=== PATIENT | female | born 1975 | race Caucasian/White ===

== ENCOUNTER → 2018-04-19 10:16 | Outpatient (CLI) | payer OTHER, SELFPAY ==
[2018-04-19 10:39] LABS: Add Manual Diff / Slide Review NO; Basophils Percent Auto 0.5 % (0-2); Eosinophils Percent Auto 5.2 % (2-4); Hematocrit 39.2 % (36-46); Hemoglobin 13.6 g/dL (12.0-16.0); Lymphocytes Percent Auto 25.8 % (25-40); Mean Corpuscular HGB Conc 34.7 % (30-36); Mean Corpuscular Hemoglobin 31.2 PG (26-34); Monocytes Percent Auto 8.7 % (3-14); Neutrophils Absolute Auto 3600 /uL (3000-5900); Neutrophils Percent Auto 59.8 % (50-75); Platelet Count 263 X10^3/uL (150-400); Red Blood Cell Count 4.36 X10^6/uL (4.0-5.2); Red Cell Distribution Width 13.1 % (11.6-14.8); White Blood Cell Count 5.9 X10^3/uL (4.5-11.0)
[2018-04-19 11:04] LABS: Erythrocyte Sedimentation Rate 9 MM/HR (0-20)
[2018-04-19 11:35] LABS: Uric Acid 2.8 mg/dL (2.5-6.2)
== END ==
PROVIDERS: PCP Physician Assistant; Visit Provider Physician Assistant
DX: M19.079 Primary osteoarthritis, unspecified ankle and foot (principal)
CPT/HCPCS: 36415; 84550; 85025; 85651

== ENCOUNTER → 2018-07-18 12:53 | Outpatient (CLI) | payer OTHER, SELFPAY ==
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
== END ==
PROVIDERS: PCP Physician Assistant; Visit Provider Physician Assistant
DX: S90.31XA Contusion of right foot, initial encounter (principal); W10.9XXA Fall (on) (from) unspecified stairs and steps, initial encounter
CPT/HCPCS: 73630

== ENCOUNTER → 2019-03-04 09:31 | Outpatient (CLI) | payer OTHER, SELFPAY ==
[2019-03-04 10:27] LABS: Cholesterol 227 mg/dL (140-199); HDL Cholesterol 96 mg/dL (40-60); LDL Cholesterol Calculated 115 mg/dL (<100); Triglycerides 79 mg/dL (35-150)
== END ==
PROVIDERS: PCP Physician Assistant; Visit Provider Physician Assistant
DX: Z13.220 Encounter for screening for lipoid disorders (principal); Z13.6 Encounter for screening for cardiovascular disorders; Z82.49 Family history of ischemic heart disease and other diseases of the circulatory system
CPT/HCPCS: 36415; 80061

== ENCOUNTER → 2019-06-21 13:08 | Outpatient (CLI) | payer OTHER, SELFPAY ==
[2019-06-21 14:36] LABS: Free T3, Triiodothyronine Free 2.72 pg/mL (2.77-5.27); Free T4, Direct Thyroxine 1.02 ng/dL (0.78-2.19)
[2019-06-21 14:50] LABS: Thyroid Stimulating Hormone 1.14 uIU/mL (0.47-4.68)
[2019-06-24 15:46] LABS: Thyroid Peroxidase Antibodies < 1 IU/mL (< 9)
== END ==
PROVIDERS: PCP Physician Assistant; Visit Provider Physician Assistant
DX: E04.9 Nontoxic goiter, unspecified (principal); L65.9 Nonscarring hair loss, unspecified
CPT/HCPCS: 36415; 84439; 84443; 84481; 86376

== ENCOUNTER 2019-08-28 14:33 | Emergency (ER) | payer OTHER, SELFPAY ==
[2019-08-28 14:35] VITALS: BP 129/79; PULSE 85; RESP 18; TEMP 36.4; O2SAT 100; BMI 24.0
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
[2019-08-28 14:59] VITALS: BP 126/78; PULSE 74; RESP 20; O2SAT 99
[2019-08-28 15:05] LABS: Add Manual Diff / Slide Review NO; Basophils Absolute Auto 0 /uL (0-100); Basophils Percent Auto 0.4 % (0-2); Eosinophils Absolute Auto 200 /uL (0-450); Eosinophils Percent Auto 2.5 % (2-4); Hematocrit 40.5 % (36-46); Hemoglobin 14.2 g/dL (12.0-16.0); Lymphocytes Absolute Auto 1600 /uL (1100-4500); Lymphocytes Percent Auto 23.2 % (25-40); Mean Corpuscular HGB Conc 35.1 % (30-36); Mean Corpuscular Hemoglobin 31.6 PG (26-34); Monocytes Absolute Auto 500 /uL (0-900); Monocytes Percent Auto 8.2 % (3-14); Neutrophils Absolute Auto 4400 /uL (1500-7000); Neutrophils Percent Auto 65.7 % (50-75); Platelet Count 268 X10^3/uL (150-400); Red Cell Distribution Width 13.1 % (11.6-14.8); White Blood Cell Count 6.7 X10^3/uL (4.5-11.0)
[2019-08-28 15:07] LABS: INR 0.9 (0.9-1.3); Prothrombin Time 10.5 SECONDS (10.1-12.7)
[2019-08-28 15:09] LABS: PTT Partial Thromboplastin Tim 29 SECONDS (26.4-36.2)
[2019-08-28 15:11] LABS: Alanine Aminotransferase 32 IU/L (<35); Albumin 4.2 g/dL (3.5-5.0); Albumin Globulin Ratio 1.3 (1.0-2.8); Alkaline Phosphatase 53 U/L (38-126); Amylase 54 U/L (30-110); Aspartate Aminotransferase 37 IU/L (14-36); BUN Creatinine Ratio 11.4 (6-22); Bilirubin Total 0.4 mg/dL (0.2-1.3); Blood Urea Nitrogen 8 mg/dL (7-17); Calcium 9.6 mg/dL (8.4-10.2); Carbon Dioxide 29 mmol/L (22-32); Chloride 102 mmol/L (98-107); Estimated Glomerular Filt Rate > 60.0 mL/min (>60); Globulin 3.3 g/dL (1.7-4.1); Glucose 135 mg/dL (70-100); HEMOLYSIS < 15 (0-50); Lipase 101 U/L (23-300); Potassium 3.2 mmol/L (3.4-5.1); Sodium 139 mmol/L (137-145); Total Protein 7.5 g/dL (6.3-8.2)
[2019-08-28 15:18] VITALS: BP 126/78; PULSE 78; RESP 20; O2SAT 97
[2019-08-28] MEDS: SODIUM CHLORIDE 0.9% 1,000 ML 150 ML IV (15:21)
[2019-08-28 15:30] VITALS: BP 121/80; PULSE 72; RESP 13; O2SAT 100
[2019-08-28 16:00] VITALS: BP 115/73; PULSE 65; RESP 12; O2SAT 100
[2019-08-28 17:14] VITALS: BP 115/76; PULSE 71; RESP 15; O2SAT 100
== END 2019-08-28 17:14 | disposition home or self-care (01) ==
PROVIDERS: Emergency Provider Emergency Medicine; PCP Physician Assistant
DX: R10.9 Unspecified abdominal pain (principal); S39.91XA Unspecified injury of abdomen, initial encounter; N83.201 Unspecified ovarian cyst, right side; E80.7 Disorder of bilirubin metabolism, unspecified; E71.32 Disorders of ketone metabolism; E87.6 Hypokalemia
CPT/HCPCS: 36415; 71260; 74177; 80053; 81003; 81025; 82150; 83690; 85025; 85610; 85730; 96360; 96361; 99284; 99285; Q9967

== ENCOUNTER → 2020-03-14 11:00 | Outpatient (CLI) | payer OTHER, SELFPAY ==
--- NOTE | 2020-03-14 | DI.US.S_ITS ---
PROCEDURE: US PELVIC COMPLETE INDICATIONS: IRREGULAR MENSTRUATION TECHNIQUE: Real-time scanning was performed of the pelvic organs, with image documentation. Additional endovaginal scanning was necessary due to incomplete visualization of the adnexal and endometrial structures by transabdominal scanning. COMPARISON: [facility], , PELVIC COMPLETE, 10/01/2015, 7:30. FINDINGS: Transabdominal scanning: Limited scanning through the kidneys shows no hydronephrosis. No pathologic free abdominal or pelvic fluid. Endovaginal scanning: Uterus: Uterus is normal in size at 9.9 x 4.3 x 5.6 cm. The endometrium measures 12 mm in combined thickness. A 3 mm echogenic focus is seen along the endometrial stripe. Ovaries: The right ovary measures 2.8 x 1.8 x 1.9 cm. The left ovary measures 2.8 x 1.8 x 2.2 cm. The ovaries have a normal sonographic appearance. No adnexal masses are seen. IMPRESSION: There is a 3 mm echogenic focus seen along the endometrial stripe, which is likely related to calcification. If there is strong clinical concern for an endometrial polyp, please consider a sonohysterogram for further evaluation. Normal appearing ovaries. Dictated by: Madhav Smith M.D. on 03/14/2020 at 10:58 Approved by: Madhav Smith M.D. on 03/14/2020 at 11:00
== END ==
PROVIDERS: PCP Physician Assistant; Referring Provider Physician Assistant; Visit Provider Physician Assistant
DX: N92.6 Irregular menstruation, unspecified (principal)
CPT/HCPCS: 76830; 76856

== ENCOUNTER → 2025-06-09 10:50 | Outpatient (CLI) | payer OTHER, SELFPAY ==
[2025-06-09 11:46] LABS: Alanine Aminotransferase 31 IU/L (<35); Albumin 4.4 g/dL (3.5-5.0); Albumin Globulin Ratio 1.4 (1.0-2.8); Alkaline Phosphatase 73 U/L (38-126); Blood Urea Nitrogen 12 mg/dL (7-17); Calcium 9.4 mg/dL (8.4-10.2); Carbon Dioxide 28 mmol/L (22-32); Chloride 101 mmol/L (98-107); Cholesterol 280 mg/dL (140-199); Estimated Glomerular Filt Rate > 60 mL/min (>60); Globulin 3.1 g/dL (1.7-4.1); Glucose 96 mg/dL (70-99); HDL Cholesterol 104 mg/dL (40-60); HEMOLYSIS < 15 (0-50); Potassium 4.2 mmol/L (3.4-5.1); Sodium 135 mmol/L (137-145); Total Protein 7.5 g/dL (6.3-8.2); Triglycerides 62 mg/dL (35-150)
== END ==
PROVIDERS: PCP Family Medicine; Referring Provider Family Medicine; Visit Provider Family Medicine
DX: G43.109 Migraine with aura, not intractable, without status migrainosus (principal); F40.01 Agoraphobia with panic disorder; Z79.899 Other long term (current) drug therapy; Z13.220 Encounter for screening for lipoid disorders; Z63.4 Disappearance and death of family member; K21.00 Gastro-esophageal reflux disease with esophagitis, without bleeding
CPT/HCPCS: 36415; 80053; 80061